=== PATIENT | female | born 1970 | race Caucasian/White ===

== ENCOUNTER 2016-11-28 20:07 | Emergency (ER) | payer OTHER ==
[~2016-11-28 20:07] MED LIST: CARI350T PO; FLUO20CA36 PO; HYDR25TA4 PO; LAMO100T2 PO; LORA10TA7 PO; OMEP40CA37 PO
--- NOTE | 2016-11-28 21:53 | NUR ---
PT WAS CALLED SEVERAL TIMES IN SPAN OF 2 AND 1/2HRS PT NOT PRESENT
== END 2016-11-28 21:55 | disposition left against medical advice (07) ==
LOC: ER 20:07
DX: R10.9 Unspecified abdominal pain (principal); Z53.21 Procedure and treatment not carried out due to patient leaving prior to being seen by health care provider

== ENCOUNTER 2017-04-03 12:00 | Emergency (ER) | payer OTHER ==
[~2017-04-03] VITALS: Ht 160 cm; Wt 86.2 kg
--- NOTE | 2017-04-03 12:14 | NUR ---
DR CALIX AT THE BEDSIDE FOR EVAL AND EXAM.
--- NOTE | 2017-04-03 12:17 | NUR ---
Patient eloped from facility. ER physician notified.
--- NOTE | 2017-04-03 12:21 | NUR ---
The patient reports one week of headache after striking the right side of her head against the corner of a car door. I was discussing pain medication or workup with the patient, however she said she had to pick her son up in 45 minutes. I told her that would not be enough time and that she was more unwelcoming to return to the emergency department after she had picked up her son. She called her who is unable to cone picker her son. The patient then eloped.
== END 2017-04-03 12:20 | disposition home or self-care (01) ==
LOC: ER 12:00
DX: R51 Headache (principal); Z53.21 Procedure and treatment not carried out due to patient leaving prior to being seen by health care provider
CPT/HCPCS: A4663

== ENCOUNTER 2017-04-03 17:03 | Emergency (ER) | payer OTHER ==
[~2017-04-03] VITALS: Ht 160 cm; Wt 86.2 kg
--- NOTE | 2017-04-03 17:37 | NUR ---
Dr Peralta at the bedside for eval.
[2017-04-03] MEDS ORDERED: IV NORMAL SALINE 1000 ML BAG IV ONE (17:45)
[2017-04-03] MEDS ORDERED: ACETAMINOPHEN 325 MG TABLET PO ONE (17:45)
[2017-04-03] MEDS ORDERED: IBUPROFEN 600 MG TABLET PO ONE (17:45)
[2017-04-03] MEDS ORDERED: PROCHLORPERAZINE EDISYLATE 10 MG/2 ML VIAL IV ONE (17:45)
[2017-04-03] MEDS ORDERED: ACETAMINOPHEN 325 MG TABLET ONE (18:00)
[2017-04-03] MEDS ORDERED: IBUPROFEN 600 MG TABLET ONE (18:00)
[2017-04-03] MEDS ORDERED: PROCHLORPERAZINE EDISYLATE 10 MG/2 ML VIAL ONE (18:01)
--- NOTE | 2017-04-03 18:56 | NUR ---
Pt left ER for CT.
--- NOTE | 2017-04-03 19:15 | NUR ---
Received report from KIRA Esteves. Assumed care of pt at this time. Pt returned from cT via gurney. Pt has no complaints at this time. Pt resting in position of comfort for self.
--- NOTE | 2017-04-03 19:21 | NUR ---
Pt stable for discharge per MD. IV dc'd, catheter intact, drsg applied, No problems noted to site. Pt given ACI. Pt verbalized understanding of dc instructions. PT ambulated out of er with steady gait and ride home
[2017-04-03 19:22] VITALS: BP 106/58
== END 2017-04-03 19:22 | disposition home or self-care (01) ==
LOC: ER 17:03
DX: S06.0X0A Concussion without loss of consciousness, initial encounter (principal); I10 Essential (primary) hypertension; K21.9 Gastro-esophageal reflux disease without esophagitis; F31.9 Bipolar disorder, unspecified; R51 Headache; R11.0 Nausea; F17.200 Nicotine dependence, unspecified, uncomplicated; Z90.49 Acquired absence of other specified parts of digestive tract; Z88.6 Allergy status to analgesic agent; W22.8XXA Striking against or struck by other objects, initial encounter; Y93.89 Activity, other specified; Y92.89 Other specified places as the place of occurrence of the external cause; Y99.8 Other external cause status
CPT/HCPCS: 36415; 70450; 84703; A4663; J0780

== ENCOUNTER 2017-07-21 13:54 | Emergency (ER) | payer BC, OTHER ==
[~2017-07-21] VITALS: Ht 160 cm; Wt 75.7 kg
[2017-07-21] MEDS ORDERED: ONDANSETRON 4 MG/2 ML VIAL IM ONE (14:15)
[2017-07-21] MEDS ORDERED: MORPHINE SULFATE 4 MG/1 ML DISP.SYRIN IM ONE (14:15)
[2017-07-21] MEDS ORDERED: ONDANSETRON 4 MG/2 ML VIAL ONE ×2 (14:50→15:44)
[2017-07-21] MEDS ORDERED: MORPHINE SULFATE 4 MG/1 ML DISP.SYRIN ONE ×3 (14:50→15:55)
--- NOTE | 2017-07-21 15:21 | NUR ---
All md orders completed, pt positioned for comfort, meds admin earlier.
[2017-07-21] MEDS ORDERED: KETOROLAC TROMETHAMINE 30 MG INJ IVP ONE (15:30)
[2017-07-21] MEDS ORDERED: MORPHINE SULFATE 4 MG/1 ML DISP.SYRIN IV ONE (15:30)
[2017-07-21] MEDS ORDERED: KETOROLAC TROMETHAMINE 30 MG INJ ONE (15:45)
[2017-07-21] MEDS ORDERED: LIDOCAINE 5% PATCH TD ONE ×2 (16:15→16:38)
--- NOTE | 2017-07-21 16:31 | NUR ---
mse completed, pt d/c'd home, aci rx x4 given. iv d/c'd intact. pt ambulated w/o diff/took all belongings.
[2017-07-21 16:32] VITALS: BP 110/74
== END 2017-07-21 16:35 | disposition home or self-care (01) ==
LOC: ER 13:56
DX: S29.9XXA Unspecified injury of thorax, initial encounter (principal); I10 Essential (primary) hypertension; E78.5 Hyperlipidemia, unspecified; K21.9 Gastro-esophageal reflux disease without esophagitis; F17.200 Nicotine dependence, unspecified, uncomplicated; Z88.6 Allergy status to analgesic agent; Z90.49 Acquired absence of other specified parts of digestive tract; G43.909 Migraine, unspecified, not intractable, without status migrainosus; W01.0XXA Fall on same level from slipping, tripping and stumbling without subsequent striking against object, initial encounter; Y93.89 Activity, other specified; Y92.89 Other specified places as the place of occurrence of the external cause; Y99.8 Other external cause status
CPT/HCPCS: 71101; 93005; A4663; J1885; J2270; J2405

== ENCOUNTER 2017-09-13 08:20 | Emergency (ER) | payer OTHER, BC ==
[~2017-09-13] VITALS: Ht 160 cm; Wt 86.2 kg
[2017-09-13] MEDS ORDERED: IV NORMAL SALINE 1000 ML BAG IV ONE (08:45)
[2017-09-13] MEDS ORDERED: ALBUTEROL SULFATE 2.5 MG/3 ML NEBU NEB ONE (08:45)
[2017-09-13] MEDS ORDERED: MAGNESIUM SULFATE 2 GM in IV DEXTROSE 5% 100 ML IV ONE (08:45)
[2017-09-13] MEDS ORDERED: IPRATROPIUM BROMIDE 0.5 MG/2.5 ML NEBU NEB ONE (08:45)
[2017-09-13] MEDS ORDERED: methylPREDNISolone SOD SUCC 125 MG/2 ML VIAL IV ONE (09:00)
[2017-09-13] MEDS ORDERED: methylPREDNISolone SOD SUCC 125 MG/2 ML VIAL ONE (09:30)
[2017-09-13] MEDS ORDERED: MAGNESIUM SULFATE 1 GM/2 ML VIAL ONE (09:30)
[2017-09-13 09:36] LABS: BASOPHILS # (AUTO) 0.1 K/uL (0.0-8.0); BASOPHILS % (AUTO) 0.7 % (0.0-2.0); EOSINOPHILS # (AUTO) 0.3 K/uL (0.0-0.7); EOSINOPHILS % (AUTO) 2.8 % (0.0-7.0); HEMATOCRIT 39.8 % (31.2-41.9); HEMOGLOBIN 13.9 g/dL (10.9-14.3); LYMPHOCYTES # (AUTO) 3.9 K/uL (20.0-40.0); LYMPHOCYTES % (AUTO) 42.5 % (20.5-51.5); MEAN CORPUSCULAR HEMOGLOBIN 30.1 uug (24.7-32.8); MEAN CORPUSCULAR HGB CONC 35 g/dL (32.3-35.6); MEAN CORPUSCULAR VOLUME 86.1 fL (75.5-95.3); MONOCYTES # (AUTO) 0.6 K/uL (2.0-10.0); MONOCYTES % (AUTO) 6.5 % (0.0-11.0); NEUTROPHILS # (AUTO) 4.4 K/uL (1.8-8.9); NEUTROPHILS % (AUTO) 47.5 % (38.5-71.5); PLATELET COUNT (AUTO) 296 K/uL (179-408); RED BLOOD CELL COUNT(AUTO) 4.62 MIL/uL (3.63-4.92); WHITE BLOOD COUNT (AUTO) 9.2 K/uL (3.8-11.8)
--- NOTE | 2017-09-13 09:38 | NUR ---
SALINE LOCK Placed, solumedrol iv admin, 1l 0.9ns infusing, xray/ekg/labs done.
[2017-09-13 09:39] LABS: CREATININE 0.7 mg/dL (0.6-1.3); POTASSIUM 3.8 mmol/L (3.5-5.1)
--- NOTE | 2017-09-13 09:39 | NUR ---
pt receiving resp tx at this time.
[2017-09-13 09:45] LABS: BILIRUBIN,DIRECT 0.1 mg/dL (0.0-0.2); BILIRUBIN,TOTAL 0.2 mg/dL (0.2-1.0); TOTAL PROTEIN, SERUM 6.2 g/dL (6.4-8.2)
[2017-09-13] MEDS ORDERED: ALBUTEROL SULFATE 2.5 MG/3 ML NEBU ONE (09:55)
[2017-09-13] MEDS ORDERED: IPRATROPIUM BROMIDE 0.5 MG/2.5 ML NEBU ONE (09:55)
--- NOTE | 2017-09-13 10:21 | NUR ---
iv contrast ct andio consent signed
[2017-09-13] MEDS ORDERED: IOHEXOL 350 100 ML INFUS..BTL ONE (10:23)
[2017-09-13] MEDS ORDERED: IV NORMAL SALINE 250 ML IV ONE (10:23)
--- NOTE | 2017-09-13 10:25 | NUR ---
pt to ct scan.
--- NOTE | 2017-09-13 13:02 | NUR ---
mse completed, cd copy/aci/rx x1 given. iv d/c'd intact. pt d/c'd homr. pt got dressed/ambultaed w/o diff/took all belongings.
[2017-09-13 13:03] VITALS: BP 122/58
== END 2017-09-13 13:04 | disposition home or self-care (01) ==
LOC: ER 08:20
DX: J44.9 Chronic obstructive pulmonary disease, unspecified (principal); R91.1 Solitary pulmonary nodule; I10 Essential (primary) hypertension; K21.9 Gastro-esophageal reflux disease without esophagitis; E78.5 Hyperlipidemia, unspecified; Z88.5 Allergy status to narcotic agent; F17.200 Nicotine dependence, unspecified, uncomplicated; Z90.49 Acquired absence of other specified parts of digestive tract; G43.909 Migraine, unspecified, not intractable, without status migrainosus
CPT/HCPCS: 36415; 71045; 71275; 85025; 93005; A4663; J2930; J3475; J3590; J7030; J7050; J7060; Q9967

== ENCOUNTER 2017-10-02 18:06 | Emergency (ER) | payer BC, OTHER ==
[~2017-10-02] VITALS: Ht 160 cm; Wt 86.2 kg
[2017-10-02] MEDS ORDERED: ONDANSETRON ODT 4 MG TAB.RAPDIS SL ONE (19:00)
[2017-10-02] MEDS ORDERED: MORPHINE SULFATE 4 MG/1 ML DISP.SYRIN IM ONE (19:00)
--- NOTE | 2017-10-02 19:02 | NUR ---
PATIENT WAS SEEN BY DR DELANEY FOR C/O HEAD PAIN AFTER FALL IN SHOWER. MEDICATION GIVEN ORDERED. SHE IS AWAKE AND ALERT.
[2017-10-02] MEDS ORDERED: ONDANSETRON ODT 4 MG TAB.RAPDIS ONE (19:16)
[2017-10-02] MEDS ORDERED: MORPHINE SULFATE 4 MG/1 ML DISP.SYRIN ONE (19:16)
--- NOTE | 2017-10-02 19:29 | NUR ---
REPORT TAKEN FROM DAY SHIFT RN. ASSUMING CARE AT THIS TIME.
--- NOTE | 2017-10-02 21:15 | NUR ---
Patient discharged to home in stable conditon. Written and verbal after care instructions given. Patient verbalizes understanding of instructions. Ambulated w/ steady gait. No distress noted. All personal belongings taken w/ patient.
[2017-10-02 21:22] VITALS: BP 111/69
== END 2017-10-02 21:22 | disposition home or self-care (01) ==
LOC: ER 18:07
DX: S16.1XXA Strain of muscle, fascia and tendon at neck level, initial encounter (principal); S00.83XA Contusion of other part of head, initial encounter; S50.02XA Contusion of left elbow, initial encounter; F17.200 Nicotine dependence, unspecified, uncomplicated; G43.909 Migraine, unspecified, not intractable, without status migrainosus; I10 Essential (primary) hypertension; E78.5 Hyperlipidemia, unspecified; K21.9 Gastro-esophageal reflux disease without esophagitis; Z88.5 Allergy status to narcotic agent; W18.30XA Fall on same level, unspecified, initial encounter; Y93.E1 Activity, personal bathing and showering; Y92.89 Other specified places as the place of occurrence of the external cause; Y99.8 Other external cause status
CPT/HCPCS: 70450; 72125; 73080; 96372; 99284; A4663; J2270; Q0162

== ENCOUNTER 2018-03-27 17:54 | Emergency (ER) | payer BC, OTHER ==
[~2018-03-27] VITALS: Ht 160 cm; Wt 86.2 kg
[2018-03-27] MEDS ORDERED: [UNRECOGNIZED DRUG - REMARK] (18:09)
--- NOTE | 2018-03-27 18:14 | NUR ---
Dr Cunningham at the bedside for MSE.
[2018-03-27] MEDS ORDERED: SULFAMETH/TRIMETH 800/160 MG TABLET ONE (18:25)
[2018-03-27] MEDS ORDERED: KETOROLAC TROMETHAMINE 60 MG INJ IM ONE ×2 (18:26→18:30)
[2018-03-27] MEDS ORDERED: SULFAMETH/TRIMETH 800/160 MG TABLET PO ONE (18:30)
--- NOTE | 2018-03-27 18:31 | NUR ---
Patient discharged to home in stable conditon. Written and verbal after care instructions given. Patient verbalizes understanding of instructions.
[2018-03-27 18:32] VITALS: BP 119/73
== END 2018-03-27 18:32 | disposition home or self-care (01) ==
LOC: ER 17:56
DX: L01.00 Impetigo, unspecified (principal); I10 Essential (primary) hypertension; E78.5 Hyperlipidemia, unspecified; K21.9 Gastro-esophageal reflux disease without esophagitis; F17.200 Nicotine dependence, unspecified, uncomplicated; Z90.49 Acquired absence of other specified parts of digestive tract; Z90.89 Acquired absence of other organs; Z79.899 Other long term (current) drug therapy
CPT/HCPCS: 96372; 99283; A4663; J1885

== ENCOUNTER 2018-07-08 11:19 | Emergency (ER) | payer OTHER ==
[~2018-07-08] VITALS: Ht 160 cm; Wt 86.2 kg
[~2018-07-08 11:19] MED LIST changes: +[UNRECOGNIZED DRUG - REMARK]
[2018-07-08] MEDS ORDERED: ONDANSETRON 4 MG/2 ML VIAL IV ONE (12:00)
[2018-07-08] MEDS ORDERED: IV NORMAL SALINE 1000 ML BAG IV ONE (12:00)
[2018-07-08] MEDS ORDERED: MORPHINE SULFATE 2 MG/1 ML DISP.SYRIN IV ONE (12:00)
[2018-07-08] MEDS ORDERED: ONDANSETRON 4 MG/2 ML VIAL ONE (12:06)
[2018-07-08 12:20] LABS: BASOPHILS # (AUTO) 0.1 K/uL (0.0-8.0); BASOPHILS % (AUTO) 0.9 % (0.0-2.0); EOSINOPHILS # (AUTO) 0.1 K/uL (0.0-0.7); HEMATOCRIT 44.9 % (31.2-41.9); HEMOGLOBIN 15.7 g/dL (10.9-14.3); LYMPHOCYTES # (AUTO) 4.6 K/uL (20.0-40.0); LYMPHOCYTES % (AUTO) 43.4 % (20.5-51.5); MEAN CORPUSCULAR HGB CONC 35 g/dL (32.3-35.6); MEAN CORPUSCULAR VOLUME 88.4 fL (75.5-95.3); MONOCYTES # (AUTO) 0.5 K/uL (2.0-10.0); MONOCYTES % (AUTO) 4.7 % (0.0-11.0); NEUTROPHILS # (AUTO) 5.3 K/uL (1.8-8.9); PLATELET COUNT (AUTO) 299 K/uL (179-408); RED BLOOD CELL COUNT(AUTO) 5.08 MIL/uL (3.63-4.92); WHITE BLOOD COUNT (AUTO) 10.6 K/uL (3.8-11.8)
[2018-07-08 12:27] LABS: CREATININE 0.8 mg/dL (0.6-1.3); POTASSIUM 3.5 mmol/L (3.5-5.1)
[2018-07-08 12:28] LABS: *BILIRUBIN,URIN NEGATIVE (NEGATIVE); *BLOOD, URINE NEGATIVE (NEGATIVE); *CLARITY,URINE CLEAR (CLEAR); *COLOR,URINE LIGHT YELLOW (YELLOW); *KETONES,URINE NEGATIVE (NEGATIVE); *PROTEIN,URINE NEGATIVE (NEGATIVE); *UROBILINOGEN,URINE 0.2 E.U./dl (NORMAL); LEUKOCYTE ESTERASE ,URINE NEGATIVE (NEGATIVE); NITRITE, URINE NEGATIVE (NEGATIVE); PH,URINE 6.5 (5.0-8.0); UGLUCOSE NEGATIVE (NEGATIVE)
[2018-07-08 12:31] LABS: BILIRUBIN,DIRECT 0.1 mg/dL (0.0-0.2); BILIRUBIN,TOTAL 0.2 mg/dL (0.2-1.0); TOTAL PROTEIN, SERUM 7.2 g/dL (6.4-8.2)
--- NOTE | 2018-07-08 12:40 | NUR ---
Pt stated " I'm a hard stick ". I attempted to start saline lock to left forearm x 1 with no success. The safety officer kerri blood from [facility]. Saline lock was started (22ga) by Araceli MALONE.
[2018-07-08] MEDS ORDERED: KETOROLAC TROMETHAMINE 30 MG INJ IVP ONE (13:30)
[2018-07-08] MEDS ORDERED: KETOROLAC TROMETHAMINE 30 MG INJ ONE (13:41)
--- NOTE | 2018-07-08 14:14 | NUR ---
Note carmeloandrew in EDM - 07/08/18 at 1519 by CHRISSIE Pt is upset and states there is burning at her IV site. I inspected the IV site (RT hand) which was patent and flushed without difficulty. Pt insisted the saline lock be removed and placed in a different place. and I spoke with the pt and notified her it might be difficult to find another site as she stated she is " a hard stick ". Pt agreed to keep the saline lock in and I slowed down the rate. Nursing ornamental ironworking supervisor Hyd also spoke with the pt regarding her concerns.
--- NOTE | 2018-07-08 14:14 | NUR ---
Pt is upset and states there is burning at her IV site. I inspected the IV site (LT hand) which was patent and flushed without difficulty. Pt insisted the saline lock be removed and placed in a different place. and I spoke with the pt and notified her it might be difficult to find another site as she stated she is " a hard stick ". Pt agreed to keep the saline lock in and I slowed down the rate. Nursing checking department supervisor David also spoke with the pt regarding her concerns.
--- NOTE | 2018-07-08 14:51 | NUR ---
Patient discharged to home in stable conditon. Written and verbal after care instructions given. Patient verbalizes understanding of instructions. Stressed follow up or return to ER for worsening s/s.
== END 2018-07-08 14:55 | disposition home or self-care (01) ==
LOC: ER 11:19
DX: R10.31 Right lower quadrant pain (principal); R10.32 Left lower quadrant pain; R11.2 Nausea with vomiting, unspecified; R51 Headache; I10 Essential (primary) hypertension; E78.5 Hyperlipidemia, unspecified; K21.9 Gastro-esophageal reflux disease without esophagitis; F17.200 Nicotine dependence, unspecified, uncomplicated; Z88.5 Allergy status to narcotic agent; Z90.49 Acquired absence of other specified parts of digestive tract; Z90.89 Acquired absence of other organs
CPT/HCPCS: 36415; 74176; 80048; 80076; 81001; 83605; 83690; 84484; 84702; 85025; 93005; 96361; 96374; 96375; 99285; J1885; J2405; 70030-TC; A4663; J7030

== ENCOUNTER 2018-10-23 18:23 | Emergency (ER) | payer BC, OTHER ==
[~2018-10-23] VITALS: Ht 160 cm; Wt 82.6 kg
--- NOTE | 2018-10-23 18:46 | NUR ---
Dr Montes at the bedside for MSE.
[2018-10-23] MEDS ORDERED: KETOROLAC TROMETHAMINE 30 MG INJ ONE (19:06)
--- NOTE | 2018-10-23 19:07 | NUR ---
Pt given Toradol per Dr cole order. Per MD's conversation w/ pt she has no allergic reaction to Toradol.
[2018-10-23] MEDS ORDERED: ONDANSETRON ODT 4 MG TAB.RAPDIS ONE (19:08)
[2018-10-23] MEDS ORDERED: ONDANSETRON ODT 4 MG TAB.RAPDIS SL ONE (19:15)
[2018-10-23] MEDS ORDERED: KETOROLAC TROMETHAMINE 30 MG INJ IM ONE (19:15)
--- NOTE | 2018-10-23 19:17 | NUR ---
No allergic reaction noted from Toradol.
[2018-10-23 19:19] VITALS: BP 100/55
--- NOTE | 2018-10-23 19:20 | NUR ---
Patient discharged to home in stable conditon. Written and verbal after care instructions given. Patient verbalizes understanding of instructions. pt left Er w/ steady gait.
== END 2018-10-23 19:20 | disposition home or self-care (01) ==
LOC: ER 18:23
DX: S16.1XXA Strain of muscle, fascia and tendon at neck level, initial encounter (principal); G44.209 Tension-type headache, unspecified, not intractable; F17.200 Nicotine dependence, unspecified, uncomplicated; I10 Essential (primary) hypertension; E78.5 Hyperlipidemia, unspecified; K21.9 Gastro-esophageal reflux disease without esophagitis; Z90.49 Acquired absence of other specified parts of digestive tract; Z90.89 Acquired absence of other organs; Z88.6 Allergy status to analgesic agent; Z88.5 Allergy status to narcotic agent; Z88.8 Allergy status to other drugs, medicaments and biological substances; Z88.1 Allergy status to other antibiotic agents; Z79.899 Other long term (current) drug therapy; W21.05XA Struck by basketball, initial encounter; Y93.89 Activity, other specified; Y92.89 Other specified places as the place of occurrence of the external cause; Y99.8 Other external cause status
CPT/HCPCS: 96372; 99283; J1885; A4663; Q0162

== ENCOUNTER 2019-05-31 19:37 | Emergency (ER) | payer BC, OTHER ==
[~2019-05-31] VITALS: Ht 160 cm; Wt 62.6 kg
--- NOTE | 2019-05-31 20:21 | NUR ---
ELSY CASTRO AT BEDSIDE FOR MSE.
--- NOTE | 2019-05-31 20:31 | NUR ---
REPORT GIVEN TO MANDI Vance LVN.
--- NOTE | 2019-05-31 20:35 | NUR ---
DR PARADA SPOKE WITH PATIENT WILL ME HOME.
[2019-05-31 20:38] VITALS: BP 105/63
--- NOTE | 2019-05-31 20:38 | NUR ---
Patient discharged to home in stable conditon. Written and verbal after care instructions given. Patient verbalizes understanding of instructions.
== END 2019-05-31 20:44 | disposition home or self-care (01) ==
LOC: ER 19:37
DX: L25.9 Unspecified contact dermatitis, unspecified cause (principal); M79.641 Pain in right hand; M79.642 Pain in left hand; I10 Essential (primary) hypertension; E78.5 Hyperlipidemia, unspecified; K21.9 Gastro-esophageal reflux disease without esophagitis; F41.9 Anxiety disorder, unspecified; F32.9 Major depressive disorder, single episode, unspecified; Z88.5 Allergy status to narcotic agent; Z88.6 Allergy status to analgesic agent; Z88.8 Allergy status to other drugs, medicaments and biological substances; F17.200 Nicotine dependence, unspecified, uncomplicated; Z79.899 Other long term (current) drug therapy
CPT/HCPCS: A4663

== ENCOUNTER 2020-12-18 09:21 | Emergency (ER) | payer OTHER ==
[~2020-12-18] VITALS: Ht 160 cm; Wt 55.3 kg
[~2020-12-18 09:21] MED LIST changes: +OMEP40CA13 PO; -OMEP40CA37 PO
--- NOTE | 2020-12-18 09:43 | NUR ---
Dr Gill at bedside for MSE.
--- NOTE | 2020-12-18 10:11 | NUR ---
Hot packs provided to patient for head/neck area. Tolerated well.
[2020-12-18] MEDS ORDERED: KETOROLAC TROMETHAMINE 30 MG INJ IM ONE (10:15)
[2020-12-18] MEDS ORDERED: KETOROLAC TROMETHAMINE 30 MG INJ ONE (10:19)
[2020-12-18] MEDS ORDERED: IV NORMAL SALINE 1000 ML BAG IV ONE (11:00)
[2020-12-18 11:11] LABS: BASOPHILS % (AUTO) 0.6 % (0.0-2.0); EOSINOPHILS # (AUTO) 0.3 K/uL (0.0-0.7); EOSINOPHILS % (AUTO) 4.3 % (0.0-7.0); HEMATOCRIT 39.5 % (31.2-41.9); HEMOGLOBIN 13.5 g/dL (10.9-14.3); LYMPHOCYTES # (AUTO) 3.1 K/uL (20.0-40.0); LYMPHOCYTES % (AUTO) 47.1 % (20.5-51.5); MEAN CORPUSCULAR HEMOGLOBIN 30.2 uug (24.7-32.8); MEAN CORPUSCULAR HGB CONC 34 g/dL (32.3-35.6); MEAN CORPUSCULAR VOLUME 88.4 fL (75.5-95.3); MONOCYTES # (AUTO) 0.4 K/uL (2.0-10.0); MONOCYTES % (AUTO) 5.8 % (0.0-11.0); NEUTROPHILS # (AUTO) 2.8 K/uL (1.8-8.9); NEUTROPHILS % (AUTO) 42.2 % (38.5-71.5); PLATELET COUNT (AUTO) 261 K/uL (179-408); RED BLOOD CELL COUNT(AUTO) 4.47 MIL/uL (3.63-4.92); WHITE BLOOD COUNT (AUTO) 6.6 K/uL (3.8-11.8)
[2020-12-18 11:29] LABS: CREATININE 0.7 mg/dL (0.6-1.3); POTASSIUM 3.8 mmol/L (3.5-5.1)
[2020-12-18 11:34] LABS: BILIRUBIN,TOTAL 0.3 mg/dL (0.2-1.0); TOTAL PROTEIN, SERUM 6.1 g/dL (6.4-8.2)
--- NOTE | 2020-12-18 12:46 | NUR ---
Pt is COVID (-).
[2020-12-18 12:55] VITALS: BP 125/70
--- NOTE | 2020-12-18 12:56 | NUR ---
Pt has been cleared for discharge by MD. Pt verbalized improvement of symptoms. IV removed. Catheter intact and site benign. Pressure and 4x4 gauze applied to site. No bleeding noted. Patient discharged to home in stable condition. Written and verbal after care instructions given. Patient verbalizes understanding of instructions. Stressed follow up or return to ER for worsening s/s. Ambulated out of ED in steady gait and stable condition.
== END 2020-12-18 12:56 | disposition home or self-care (01) ==
LOC: ER 09:21
DX: R51.9 Headache, unspecified (principal); Z20.822 Contact with and (suspected) exposure to COVID-19; M54.2 Cervicalgia; F31.9 Bipolar disorder, unspecified; I10 Essential (primary) hypertension; E78.5 Hyperlipidemia, unspecified; Z87.01 Personal history of pneumonia (recurrent); Z88.6 Allergy status to analgesic agent; Z88.8 Allergy status to other drugs, medicaments and biological substances; K21.9 Gastro-esophageal reflux disease without esophagitis; Z79.899 Other long term (current) drug therapy
CPT/HCPCS: 36415; 70450; 80053; 85025; 87426; 96360; 96372; 99284; J1885; A4663; J7030

== ENCOUNTER 2021-08-12 20:24 | Emergency (ER) | payer SELFPAY ==
[~2021-08-12] VITALS: Ht 160 cm; Wt 56.7 kg
[~2021-08-12 20:24] MED LIST changes: -OMEP40CA13 PO; +OMEP40CA21 PO
[2021-08-12] MEDS ORDERED: IBUPROFEN 600 MG TABLET PO ONE (21:45)
[2021-08-12] MEDS ORDERED: TDAP DIPH,PERTUSS,TET VAC/PF 0.5 ML DISP.SYRIN IM ONE ×2 (21:45→21:49)
[2021-08-12] MEDS ORDERED: IBUPROFEN 600 MG TABLET ONE (21:49)
--- NOTE | 2021-08-12 22:10 | NUR ---
Patient discharged to home in stable condition. Written and verbal after care instructions given. Patient verbalizes understanding of instructions. Stressed follow up or return to ER for worsening s/s.
[2021-08-12 22:56] VITALS: BP 132/72
== END 2021-08-12 22:10 | disposition home or self-care (01) ==
LOC: ER 20:26
DX: S61.211A Laceration without foreign body of left index finger without damage to nail, initial encounter (principal); W26.8XXA Contact with other sharp object(s), not elsewhere classified, initial encounter; Y93.89 Activity, other specified; Y92.039 Unspecified place in apartment as the place of occurrence of the external cause; F17.210 Nicotine dependence, cigarettes, uncomplicated; Z82.49 Family history of ischemic heart disease and other diseases of the circulatory system; Z88.6 Allergy status to analgesic agent; Z88.8 Allergy status to other drugs, medicaments and biological substances; E78.5 Hyperlipidemia, unspecified; F31.9 Bipolar disorder, unspecified
CPT/HCPCS: 90715; A4663

== ENCOUNTER 2021-12-16 23:34 | Emergency (ER) | payer BC ==
[~2021-12-16] VITALS: Ht 160 cm; Wt 56.7 kg
--- NOTE | 2021-12-16 23:45 | NUR ---
PT AMBULATED TO ER STEADY GAIT C/O WILSON AND BLURRED VISION ON RT EYE X1 DAY. PT A/O X4, NO SOB OR LABORED BREATHING, AFEBRILE. DENIES CP/PRESSURE. NO GI/ DISTRESS. ALL PULSES PALPABLE. HAND WIND ENERGY TECHNICIAN EQUAL. ABLE TO MOVE ALL EXTREMITIES WITHIN NORMAL LIMITS. CLEAR SPEECH, COMPLETE SENTENCES.
--- NOTE | 2021-12-16 23:50 | NUR ---
DR. RITTER AT BEDSIDE, MSE IN PROGRESS.
[2021-12-17] MEDS ORDERED: OXYC-128 PO (00:05)
[2021-12-17] MEDS ORDERED: ACYC-108 PO (00:05)
--- NOTE | 2021-12-17 00:10 | NUR ---
Patient discharged to home in stable condition. Written and verbal after care instructions given. Patient verbalizes understanding of instructions. Stressed follow up or return to ER for worsening s/s. Steady gait, no changes in LOC.
[2021-12-17 00:11] VITALS: BP 118/74
== END 2021-12-17 00:11 | disposition home or self-care (01) ==
LOC: ER 23:37
DX: R51.9 Headache, unspecified (principal); R21 Rash and other nonspecific skin eruption; F17.210 Nicotine dependence, cigarettes, uncomplicated; Z88.6 Allergy status to analgesic agent; Z88.1 Allergy status to other antibiotic agents; Z91.048 Other nonmedicinal substance allergy status; F31.9 Bipolar disorder, unspecified; I10 Essential (primary) hypertension; Z98.84 Bariatric surgery status
CPT/HCPCS: A4663

== ENCOUNTER 2023-08-08 13:59 | Emergency (ER) | payer BC ==
[~2023-08-08] VITALS: Ht 160 cm; Wt 53.1 kg
[~2023-08-08 13:59] MED LIST changes: +ACYC-108 PO; +OXYC-128 PO
[2023-08-08] MEDS ORDERED: IV NORMAL SALINE 1000 ML BAG IV ONE (15:00)
[2023-08-08 15:33] LABS: *BILIRUBIN,URIN NEGATIVE (NEGATIVE); *CLARITY,URINE CLEAR (CLEAR); *COLOR,URINE YELLOW (YELLOW); *KETONES,URINE NEGATIVE (NEGATIVE); *PROTEIN,URINE NEGATIVE (NEGATIVE); *UROBILINOGEN,URINE 0.2 E.U./dl (NORMAL); LEUKOCYTE ESTERASE ,URINE NEGATIVE (NEGATIVE); NITRITE, URINE NEGATIVE (NEGATIVE); UGLUCOSE NEGATIVE (NEGATIVE)
[2023-08-08 15:39] LABS: CARBON DIOXIDE 27 mmol/L (21-32); CHLORIDE 104 mmol/L (98-107); CREATININE 0.6 mg/dL (0.6-1.3); GLUCOSE 88 mg/dL (74-106); SODIUM SERUM 143 mmol/L (136-145); UREA NITROGEN, BLOOD 12 mg/dL (7-18)
[2023-08-08 15:48] LABS: ALANINE AMINOTRANSFERASE 16 U/L (14-59); ALBUMIN 3.9 g/dL (3.4-5.0); ALKALINE PHOSPHATASE 86 U/L (50-136); ASPARTATE AMINOTRANSFERASE 12 U/L (15-37); BILIRUBIN,DIRECT 0.1 mg/dL (0.0-0.2); BILIRUBIN,TOTAL 0.3 mg/dL (0.2-1.0); LIPASE 34 U/L (16-77)
[2023-08-08 15:50] LABS: PREGNANCY TEST SERUM QUAN 3 miul/L (0-6)
[2023-08-08 15:54] LABS: BASOPHILS # (AUTO) 0.1 K/UL (0.0-0.2); BASOPHILS % (AUTO) 0.9 % (0.0-2.0); EOSINOPHILS # (AUTO) 0.2 K/uL (0.0-0.7); EOSINOPHILS % (AUTO) 2.7 % (0.0-7.0); HEMOGLOBIN 14.5 g/dL (10.9-14.3); LYMPHOCYTES # (AUTO) 2.4 K/uL (0.8-4.8); LYMPHOCYTES % (AUTO) 41.3 % (20.5-51.5); MEAN CORPUSCULAR HEMOGLOBIN 29.8 uug (24.7-32.8); MEAN CORPUSCULAR HGB CONC 34 g/dL (32.3-35.6); MONOCYTES # (AUTO) 0.3 K/uL (0.1-1.30); MONOCYTES % (AUTO) 5.8 % (0.0-11.0); NEUTROPHILS # (AUTO) 2.9 K/uL (1.8-8.9); NEUTROPHILS % (AUTO) 49.3 % (38.5-71.5); PLATELET COUNT (AUTO) 348 K/uL (179-408); RED BLOOD CELL COUNT(AUTO) 4.88 MIL/uL (3.63-4.92); RED CELL DISTRIBUTION WIDTH 13.6 % (12.3-17.7); WHITE BLOOD COUNT (AUTO) 5.9 K/uL (3.8-11.8)
[2023-08-08] MEDS ORDERED: SWABABLE VALVE TRANSFER SET EA MC ONE (15:57)
[2023-08-08] MEDS ORDERED: IOHEXOL 350 100 ML INFUS..BTL ONE (15:57)
[2023-08-08] MEDS ORDERED: IV NORMAL SALINE 250 ML IV ONE (15:57)
[2023-08-08 16:01] LABS: DIFFERENTIAL COMMENT 1
[2023-08-08 16:04] LABS: *BLOOD, URINE TRACE (NEGATIVE)
[2023-08-08 17:48] VITALS: BP 129/76; TEMP 98.4; O2SAT 97
[2023-08-08 18:11] LABS: BACTERIA,URINE FEW /HPF (NONE SEEN); RBC,URINE 0-3 /HPF (0-3); SQUAMOUS EPITHELIAL CELL,UR FEW /HPF (NONE SEEN); WBC,URINE NONE SEEN /HPF (0-3)
== END 2023-08-08 17:48 | disposition home or self-care (01) ==
LOC: ER 13:59
DX: R10.13 Epigastric pain (principal); R10.2 Pelvic and perineal pain; G43.909 Migraine, unspecified, not intractable, without status migrainosus; E78.5 Hyperlipidemia, unspecified; F17.210 Nicotine dependence, cigarettes, uncomplicated; Z90.49 Acquired absence of other specified parts of digestive tract; Z88.1 Allergy status to other antibiotic agents; Z88.5 Allergy status to narcotic agent; Z88.8 Allergy status to other drugs, medicaments and biological substances; Z79.899 Other long term (current) drug therapy
CPT/HCPCS: 99285; 74177; 96360; 76705; 71045; 80076; 80048; 81001; 83690; 85025; 85379; 85651; 85730; 86140; 84484; 84702; 36415; 93005; Q9967; J7040; A4606; A4663

== ENCOUNTER 2024-03-28 15:01 | Emergency (ER) | payer SELFPAY ==
[~2024-03-28] VITALS: Ht 160 cm; Wt 56.7 kg
[2024-03-28] MEDS ORDERED: OXYCODONE HCL 5 MG TABLET ONE (15:22)
[2024-03-28] MEDS: OXYCODONE HCL 5 MG TABLET PO ONE (15:24)
[2024-03-28 15:36] LABS: *BILIRUBIN,URIN NEGATIVE (NEGATIVE); *BLOOD, URINE NEGATIVE (NEGATIVE); *CLARITY,URINE CLEAR (CLEAR); *COLOR,URINE YELLOW (YELLOW); *KETONES,URINE NEGATIVE (NEGATIVE); *PROTEIN,URINE NEGATIVE (NEGATIVE); *UROBILINOGEN,URINE 0.2 E.U./dl (NORMAL); LEUKOCYTE ESTERASE ,URINE NEGATIVE (NEGATIVE); NITRITE, URINE NEGATIVE (NEGATIVE); PH,URINE 5.5 (5.0-8.0); UGLUCOSE NEGATIVE (NEGATIVE)
[2024-03-28 15:42] LABS: CREATININE 0.6 mg/dL (0.6-1.3); POTASSIUM 3.9 mmol/L (3.5-5.1)
[2024-03-28 15:44] LABS: BASOPHILS # (AUTO) 0.1 K/UL (0.0-0.2); BASOPHILS % (AUTO) 0.9 % (0.0-2.0); DIFFERENTIAL COMMENT 1; EOSINOPHILS # (AUTO) 0.1 K/uL (0.0-0.7); EOSINOPHILS % (AUTO) 1.7 % (0.0-7.0); HEMATOCRIT 38.6 % (31.2-41.9); HEMOGLOBIN 12.6 g/dL (10.9-14.3); LYMPHOCYTES % (AUTO) 47.7 % (20.5-51.5); MEAN CORPUSCULAR HEMOGLOBIN 29.1 uug (24.7-32.8); MEAN CORPUSCULAR HGB CONC 33 g/dL (32.3-35.6); MEAN CORPUSCULAR VOLUME 89.2 fL (75.5-95.3); MONOCYTES # (AUTO) 0.2 K/uL (0.1-1.30); MONOCYTES % (AUTO) 3.8 % (0.0-11.0); NEUTROPHILS # (AUTO) 2.9 K/uL (1.8-8.9); NEUTROPHILS % (AUTO) 45.9 % (38.5-71.5); PLATELET COUNT (AUTO) 340 K/uL (179-408); RED BLOOD CELL COUNT(AUTO) 4.33 MIL/uL (3.63-4.92); RED CELL DISTRIBUTION WIDTH 13.4 % (12.3-17.7); WHITE BLOOD COUNT (AUTO) 6.3 K/uL (3.8-11.8)
[2024-03-28 15:48] LABS: ALBUMIN 3.5 g/dL (3.4-5.0); BILIRUBIN,TOTAL 0.2 mg/dL (0.2-1.0); TOTAL PROTEIN, SERUM 6.5 g/dL (6.4-8.2)
[2024-03-28] MEDS ORDERED: NITR100C6 PO (16:29)
[2024-03-28 16:34] VITALS: BP 128/78; TEMP 98; O2SAT 97
== END 2024-03-28 16:35 | disposition home or self-care (01) ==
LOC: ER 15:02
DX: M54.50 Low back pain, unspecified (principal); G43.909 Migraine, unspecified, not intractable, without status migrainosus; E78.5 Hyperlipidemia, unspecified; F31.9 Bipolar disorder, unspecified; Z90.49 Acquired absence of other specified parts of digestive tract; Z98.890 Other specified postprocedural states; F17.200 Nicotine dependence, unspecified, uncomplicated; Z79.899 Other long term (current) drug therapy; Z79.891 Long term (current) use of opiate analgesic; Z88.5 Allergy status to narcotic agent; Z88.1 Allergy status to other antibiotic agents; Z88.8 Allergy status to other drugs, medicaments and biological substances
CPT/HCPCS: 36415; 85025; A4606; A4663

== ENCOUNTER 2024-04-12 11:38 | Emergency (ER) | payer BC ==
[~2024-04-12] VITALS: Ht 160 cm; Wt 56.7 kg
[~2024-04-12 11:38] MED LIST changes: +NITR100C6 PO
[2024-04-12] MEDS ORDERED: AMOX-430 PO (12:00)
[2024-04-12 12:11] VITALS: BP 112/78; O2SAT 97
== END 2024-04-12 12:14 | disposition home or self-care (01) ==
LOC: ER 11:39
DX: J32.9 Chronic sinusitis, unspecified (principal); G43.909 Migraine, unspecified, not intractable, without status migrainosus; E78.5 Hyperlipidemia, unspecified; F31.9 Bipolar disorder, unspecified; F17.200 Nicotine dependence, unspecified, uncomplicated; Z98.890 Other specified postprocedural states; Z79.899 Other long term (current) drug therapy; Z79.891 Long term (current) use of opiate analgesic
CPT/HCPCS: A4606; A4663

== ENCOUNTER 2024-05-27 14:15 | Emergency (ER) | payer BC ==
[~2024-05-27] VITALS: Ht 167.6 cm; Wt 59.4 kg
[~2024-05-27 14:15] MED LIST changes: +AMOX-430 PO
[2024-05-27] MEDS ORDERED: TRAM50TA2 PO (14:29)
[2024-05-27] MEDS ORDERED: HYDR-4676 PO (14:29)
[2024-05-27 15:32] LABS: BASOPHILS # (AUTO) 0.1 K/UL (0.0-0.2); BASOPHILS % (AUTO) 1.1 % (0.0-2.0); EOSINOPHILS # (AUTO) 0.1 K/uL (0.0-0.7); EOSINOPHILS % (AUTO) 2.2 % (0.0-7.0); HEMATOCRIT 37.5 % (31.2-41.9); HEMOGLOBIN 12.2 g/dL (10.9-14.3); LYMPHOCYTES # (AUTO) 3.2 K/uL (0.8-4.8); LYMPHOCYTES % (AUTO) 50.5 % (20.5-51.5); MEAN CORPUSCULAR HEMOGLOBIN 28.6 uug (24.7-32.8); MEAN CORPUSCULAR HGB CONC 32 g/dL (32.3-35.6); MEAN CORPUSCULAR VOLUME 88.1 fL (75.5-95.3); MONOCYTES # (AUTO) 0.3 K/uL (0.1-1.30); MONOCYTES % (AUTO) 4.6 % (0.0-11.0); NEUTROPHILS # (AUTO) 2.7 K/uL (1.8-8.9); NEUTROPHILS % (AUTO) 41.6 % (38.5-71.5); PLATELET COUNT (AUTO) 339 K/uL (179-408); RED BLOOD CELL COUNT(AUTO) 4.25 MIL/uL (3.63-4.92); RED CELL DISTRIBUTION WIDTH 13.6 % (12.3-17.7); WHITE BLOOD COUNT (AUTO) 6.4 K/uL (3.8-11.8)
[2024-05-27 15:38] LABS: CALCIUM 8.7 mg/dL (8.5-10.1); CREATININE 0.9 mg/dL (0.6-1.3); POTASSIUM 4.3 mmol/L (3.5-5.1)
[2024-05-27] MEDS ORDERED: levoFLOXacin 750 MG TABLET ONE (16:33)
[2024-05-27] MEDS ORDERED: ONDA4TAB5 PO (16:36)
[2024-05-27] MEDS ORDERED: LEVO750T46 PO (16:36)
[2024-05-27] MEDS ORDERED: MECL-225 PO (16:36)
[2024-05-27] MEDS: levoFLOXacin 750 MG TABLET PO ONE (16:36)
[2024-05-27] MEDS ORDERED: ACET10DR15 EACH EAR (16:36)
[2024-05-27] MEDS ORDERED: ONDANSETRON ODT 4 MG TAB.RAPDIS ONE (16:41)
[2024-05-27] MEDS: ONDANSETRON ODT 4 MG TAB.RAPDIS SL ONE (16:43)
[2024-05-27 16:57] VITALS: BP 127/76; O2SAT 98
== END 2024-05-27 17:00 | disposition home or self-care (01) ==
LOC: ER 14:15
DX: J32.9 Chronic sinusitis, unspecified (principal); H81.11 Benign paroxysmal vertigo, right ear; H60.93 Unspecified otitis externa, bilateral; E78.5 Hyperlipidemia, unspecified; G43.909 Migraine, unspecified, not intractable, without status migrainosus; Z98.890 Other specified postprocedural states; Z90.49 Acquired absence of other specified parts of digestive tract; F17.200 Nicotine dependence, unspecified, uncomplicated; Z79.891 Long term (current) use of opiate analgesic; Z79.899 Other long term (current) drug therapy
CPT/HCPCS: 36415; 70486; 71045; 85025; A4606; A4663; Q0162

== ENCOUNTER 2024-11-10 12:08 | Emergency (ER) | payer BC ==
[~2024-11-10] VITALS: Ht 160 cm; Wt 56.7 kg
[~2024-11-10 12:08] MED LIST changes: +ACET10DR15 EACH EAR; -ACYC-108 PO; -AMOX-430 PO; -CARI350T PO; -FLUO20CA36 PO; +HYDR-4676 PO; -HYDR25TA4 PO; +LEVO750T46 PO; -LORA10TA7 PO; +MECL-225 PO; -NITR100C6 PO; -OMEP40CA21 PO; +ONDA4TAB5 PO; -OXYC-128 PO; +TRAM50TA2 PO
[2024-11-10] MEDS ORDERED: ONDANSETRON 4 MG/2 ML VIAL ONE (12:24)
[2024-11-10] MEDS ORDERED: MORPHINE SULFATE 4 MG/1 ML DISP.SYRIN ONE (12:25)
[2024-11-10] MEDS ORDERED: HYDR-3980 MT (12:33)
[2024-11-10] MEDS: ONDANSETRON 4 MG/2 ML VIAL IV ONE (12:35)
[2024-11-10] MEDS: MORPHINE SULFATE 2 MG/1 ML DISP.SYRIN IV ONE (12:35)
[2024-11-10 12:37] LABS: *BILIRUBIN,URIN NEGATIVE (NEGATIVE); *BLOOD, URINE NEGATIVE (NEGATIVE); *CLARITY,URINE CLEAR (CLEAR); *COLOR,URINE YELLOW (YELLOW); *KETONES,URINE NEGATIVE (NEGATIVE); *PROTEIN,URINE NEGATIVE (NEGATIVE); *UROBILINOGEN,URINE 0.2 E.U./dl (NORMAL); LEUKOCYTE ESTERASE ,URINE NEGATIVE (NEGATIVE); NITRITE, URINE NEGATIVE (NEGATIVE); PH,URINE 5.5 (5.0-8.0); UGLUCOSE NEGATIVE (NEGATIVE)
[2024-11-10 12:38] LABS: BASOPHILS # (AUTO) 0.1 K/UL (0.0-0.2); BASOPHILS % (AUTO) 0.7 % (0.0-2.0); EOSINOPHILS # (AUTO) 0.1 K/uL (0.0-0.7); EOSINOPHILS % (AUTO) 1.8 % (0.0-7.0); HEMATOCRIT 40.4 % (31.2-41.9); HEMOGLOBIN 13.3 g/dL (10.9-14.3); LYMPHOCYTES # (AUTO) 1.8 K/uL (0.8-4.8); LYMPHOCYTES % (AUTO) 23.2 % (20.5-51.5); MEAN CORPUSCULAR HGB CONC 33 g/dL (32.3-35.6); MEAN CORPUSCULAR VOLUME 88.1 fL (75.5-95.3); MONOCYTES # (AUTO) 0.3 K/uL (0.1-1.30); MONOCYTES % (AUTO) 3.9 % (0.0-11.0); NEUTROPHILS # (AUTO) 5.6 K/uL (1.8-8.9); NEUTROPHILS % (AUTO) 70.4 % (38.5-71.5); PLATELET COUNT (AUTO) 318 K/uL (179-408); RED BLOOD CELL COUNT(AUTO) 4.59 MIL/uL (3.63-4.92); RED CELL DISTRIBUTION WIDTH 13.6 % (12.3-17.7)
[2024-11-10] MEDS: IV NORMAL SALINE 1000 ML BAG IV ONE (12:42)
[2024-11-10 12:49] LABS: DIFFERENTIAL COMMENT 1
[2024-11-10] MEDS ORDERED: IOHEXOL 300MG/ML 100 ML INFUS..BTL ONE (12:50)
[2024-11-10] MEDS ORDERED: SWABABLE VALVE TRANSFER SET EA MC ONE (12:50)
[2024-11-10] MEDS ORDERED: IV NORMAL SALINE 250 ML IV ONE (12:50)
[2024-11-10 12:59] LABS: ALBUMIN 3.3 g/dL (3.4-5.0); BILIRUBIN,DIRECT 0.1 mg/dL (0.0-0.2); BILIRUBIN,TOTAL 0.3 mg/dL (0.2-1.0); CALCIUM 9.2 mg/dL (8.5-10.1); CREATININE 0.7 mg/dL (0.6-1.3); TOTAL PROTEIN, SERUM 6.5 g/dL (6.4-8.2)
[2024-11-10] MEDS ORDERED: HYDROMORPHONE 1 MG/1 ML DISP.SYRIN ONE (13:26)
[2024-11-10] MEDS: HYDROMORPHONE 1 MG/1 ML DISP.SYRIN IV ONE (13:46)
[2024-11-10] MEDS ORDERED: ACETAMINOPHEN 500 MG TABLET ONE (14:11)
[2024-11-10] MEDS: ACETAMINOPHEN 500 MG TABLET PO ONE (14:14)
[2024-11-10] MEDS ORDERED: DICYCLOMINE HCL 20 MG TABLET ONE (14:26)
[2024-11-10] MEDS ORDERED: ONDA4TAB5 PO (14:29)
[2024-11-10] MEDS: DICYCLOMINE HCL 20 MG TABLET PO STA (14:29)
[2024-11-10] MEDS ORDERED: DICY10CA13 PO (14:29)
[2024-11-10 14:41] VITALS: BP 109/77; TEMP 97.7; O2SAT 100
== END 2024-11-10 14:39 | disposition home or self-care (01) ==
LOC: ER 12:08
DX: R10.30 Lower abdominal pain, unspecified (principal); R11.0 Nausea; E78.5 Hyperlipidemia, unspecified; F17.210 Nicotine dependence, cigarettes, uncomplicated; F41.9 Anxiety disorder, unspecified; G89.29 Other chronic pain; G43.909 Migraine, unspecified, not intractable, without status migrainosus; Z96.652 Presence of left artificial knee joint; Z98.84 Bariatric surgery status
CPT/HCPCS: 99285; 74177; 96374; 76856; 96361; 96375; 80076; 80048; 81003; 83690; 85025; 36415; J2405; Q9967; J2270; J7040; A4606; A4663; A9150; J1171

== ENCOUNTER 2025-03-04 22:31 | Emergency (ER) | payer SELFPAY ==
[~2025-03-04] VITALS: Ht 160 cm; Wt 56.7 kg
[~2025-03-04 22:31] MED LIST changes: +DICY10CA13 PO; +HYDR-3980 MT
[2025-03-05] MEDS ORDERED: AMOX-430 PO (00:03)
[2025-03-05] MEDS ORDERED: FLUT16SP16 BNOSTRILS (00:03)
[2025-03-05] MEDS ORDERED: P-EP-93 PO (00:03)
[2025-03-05] MEDS ORDERED: AMOXICILLIN-CLAVUL 875-125MG TABLET ONE (00:07)
[2025-03-05] MEDS: AMOXICILLIN-CLAVUL 875-125MG TABLET PO ONE (00:08)
[2025-03-05 00:17] VITALS: BP 115/71
== END 2025-03-05 00:18 | disposition home or self-care (01) ==
LOC: ER 22:33
DX: J32.9 Chronic sinusitis, unspecified (principal); H92.02 Otalgia, left ear; E78.5 Hyperlipidemia, unspecified; F17.210 Nicotine dependence, cigarettes, uncomplicated; F41.9 Anxiety disorder, unspecified; G89.29 Other chronic pain; M79.7 Fibromyalgia; G43.909 Migraine, unspecified, not intractable, without status migrainosus; Z98.84 Bariatric surgery status
CPT/HCPCS: A4606; A4663

== ENCOUNTER 2025-06-27 19:58 | Emergency (ER) | payer BC ==
[~2025-06-27] VITALS: Ht 157.5 cm; Wt 56.7 kg
[~2025-06-27 19:58] MED LIST changes: +AMOX-430 PO; +FLUT16SP16 BNOSTRILS; +P-EP-93 PO
[2025-06-27 20:01] VITALS: BP 144/72
[2025-06-27] MEDS: IBUPROFEN 400 MG TABLET PO ONE (21:15)
[2025-06-27] MEDS: ACETAMINOPHEN 500 MG TABLET PO ONE (21:16)
[2025-06-27] MEDS ORDERED: AMOX-430 PO (21:34)
[2025-06-27] MEDS ORDERED: AMOXICILLIN-CLAVUL 875-125MG TABLET ONE (21:36)
[2025-06-27 21:39] VITALS: BP 144/72; O2SAT 95
[2025-06-27] MEDS: AMOXICILLIN-CLAVUL 875-125MG TABLET PO ONE (21:39)
== END 2025-06-27 21:40 | disposition home or self-care (01) ==
LOC: ER 20:00
DX: J01.90 Acute sinusitis, unspecified (principal); F41.9 Anxiety disorder, unspecified; F17.210 Nicotine dependence, cigarettes, uncomplicated; Z79.891 Long term (current) use of opiate analgesic; Z88.7 Allergy status to serum and vaccine; Z98.84 Bariatric surgery status; Z20.822 Contact with and (suspected) exposure to COVID-19
CPT/HCPCS: 71045; A4606; A4663